=== PATIENT | female | born 1955 | race African-American/Black ===

== ENCOUNTER 2018-12-07 14:17 | Inpatient (IN) | payer OTHER ==
[~2018-12-07] VITALS: Ht 162.6 cm; Wt 103.5 kg
[~2018-12-07 14:17] MED LIST: ALPR1TAB2 PO; ASPI325T32 PO; ATOR20TA38 PO; DOCU-159 PO; GABA300C PO; LOSA50TA2 PO; MECL25TA2 PO; PANT40TA3 PO; SERT100T PO; SPIR50TA PO; [UNRECOGNIZED DRUG - CODE] TD
--- NOTE | 2018-12-07 15:10 | ERD ---
ER Documentation Chief Complaint Chief Complaint GRAYSON HPI The patient is 63-year-old female, presenting to the ER because of headache. She had a syncopal episode while she was waiting in the emergency department waiting room.She was recently diagnosed with temporal arteritis about 5 weeks ago, and follow-up with neurologist. She was seen by film cleaner yesterday, who told her that she had a stroke in her right eye. She denies facial pain, neck pain, chest pain, dyspnea, abdominal pain, vomiting. She denies smoking or drinking. She has not been able to see well from her right eye for the last 5-6 clicks Medical history: Dyslipidemia, anxiety, hypertension, diabetic neuropathy, history of TIA, diabetes mellitus Past surgical history: Brain aneurysm, ROS All systems reviewed and are negative except as per history of present illness. Medications Home Meds Reported Medications Donepezil* (Donepezil*) 10 Mg Tablet, 10 MG PO DAILY, #30 TAB 12/07/18 Zolpidem Tartrate* (Zolpidem Tartrate*) 5 Mg Tablet, 5 MG PO QHS PRN for INSOMNIA, #30 TAB 12/07/18 Tramadol Hcl* (Ultram*) 50 Mg Tablet, 50 MG PO Q6H PRN for PAIN, TAB 12/07/18 Nicotine* (Nicotine* Patch) 21 mg/day Patch, 1 EACH TD DAILY, PATCH 12/07/18 Atorvastatin* (Atorvastatin*) 80 Mg Tablet, 80 MG PO QHS, #30 TAB 12/07/18 Clopidogrel Bisulfate* (Clopidogrel Bisulfate*) 75 Mg Tablet, 75 MG PO DAILY, #30 TAB 12/07/18 Divalproex Sodium* (Divalproex Sodium*) 500 Mg Tablet.dr, 500 MG PO BID, #120 TAB 12/07/18 Trazodone Hcl* (Trazodone Hcl*) 100 Mg Tablet, 100 MG PO QHS, #30 TAB 12/07/18 Ergocalciferol (Vitamin D2) (VITAMIN D2) 50,000 Unit Capsule, 37660 UNIT PO Q7D, CAP 12/07/18 Gabapentin* (Gabapentin*) 300 Mg Capsule, 300 MG PO TID, #90 CAP 12/07/18 Albuterol Sulfate* (Ventolin HFA*) 18 Gm Hfa.aer.ad, 2 PUFF INHALATION Q4H, #1 INHALER 12/07/18 Ferrous Sulfate* (Ferrous Sulfate*) 325 Mg Tabec, 325 MG PO DAILY, TAB 12/07/18 Amlodipine Besylate* (Amlodipine Besylate*) 10 Mg Tablet, 10 MG PO DAILY, #30 TAB 12/07/18 Ipratropium-Albuterol (Ipratropium-Albuterol) 0.5-3 Mg/3 Ml Ampul.neb, 3 ML INHALATION BID, #30 VIAL 12/07/18 Alprazolam* (Alprazolam*) 1 Mg Tablet, 1 MG PO Q12H PRN for ANXIETY, TAB 12/07/18 Pantoprazole* (Pantoprazole*) 40 Mg Tablet.dr, 40 MG PO AC BREAKFAST, TAB 12/07/18 Docusate Sodium* (Docusate Sodium*) 100 Mg Capsule, 100 MG PO BID, #60 CAP 12/07/18 Hydroxyzine Hcl* (Hydroxyzine Hcl*) 50 Mg Tablet, 50 MG PO BID PRN for ITCHING, #30 TAB 12/07/18 Umeclidinium Brm-Vilanterol Tr (Anoro Ellipta) 62.5-25 Mcg Disk.w.dev, 1 EACH INHALATION DAILY, #1 DISK 12/07/18 Levothyroxine Sodium* (Levothyroxine Sodium*) 25 Mcg Tablet, 25 MCG PO BEFORE BREAKFAST, #30 TAB 12/07/18 Prochlorperazine* (Prochlorperazine*) 10 Mg Tablet, 10 MG PO Q8H PRN for NAUSEA, TAB 12/07/18 Sertraline Hcl* (Sertraline Hcl*) 50 Mg Tablet, 50 MG PO TID, #30 TAB 12/07/18 Losartan Potassium* (Losartan Potassium*) 50 Mg Tablet, 50 MG PO DAILY, TAB 12/07/18 Metformin Hcl* (Metformin Hcl*) 500 Mg Tablet, 500 MG PO WITH BREAKFAST, #30 TAB 12/07/18 Cyclobenzaprine Hcl* (Cyclobenzaprine Hcl*) 10 Mg Tablet, 10 MG PO DAILY, #60 TAB 12/07/18 Discontinued Reported Medications Donepezil* (Donepezil*) 10 Mg Tablet, 10 MG PO DAILY, #30 TAB 12/07/18 Docusate Sodium* (Docusate Sodium*) 100 Mg Capsule, 100 MG PO DAILY PRN for CONSTIPATION, CAP 07/18/14 Pantoprazole* (Protonix*) 40 Mg Tablet.dr, 40 MG PO DAILY, TAB 07/18/14 Atorvastatin Calcium* (Atorvastatin Calcium*) 20 Mg Tablet, 20 MG PO HS, TAB 07/18/14 Aspirin* (Aspirin* EC) 325 Mg Tablet.dr, 325 MG PO DAILY, TAB 07/18/14 Nicotine* (Nicoderm* Patch) 21 mg/day Patch, 1 PATCH TD DAILY, PATCH 07/18/14 Meclizine Hcl* (Antivert*) 25 Mg Tablet, 25 MG PO TID, TAB 07/18/14 Gabapentin* (Neurontin*) 300 Mg Capsule, 300 MG PO TID, CAP 07/18/14 Sertraline Hcl* (Zoloft*) 100 Mg Tablet, 100 MG PO DAILY, TAB 07/03/14 Alprazolam* (Xanax*) 1 Mg Tab, 1 MG PO BID PRN for ANXIETY, TAB 01/25/14 Spironolactone* (Aldactone*) 50 Mg Tablet, 50 MG PO DAILY 01/25/14 Losartan Potassium* (Cozaar*) 50 Mg Tablet, 50 MG PO BID, TAB 01/25/14 Allergies Allergies: Coded Allergies: ibuprofen (Verified Allergy, Unknown, 12/07/18) iodine (Verified Allergy, Unknown, 12/07/18) sumatriptan (Verified Allergy, Unknown, 12/07/18) tramadol (Unverified Allergy, Unknown, 12/07/18) PMhx/Soc History of Surgery: Yes (brain aneurysm clipping ) Anesthesia Reaction: No Hx Neurological Disorder: Yes (tia(2013), HEMORR STROKE) Hx Respiratory Disorders: No Hx Cardiac Disorders: Yes (HTN, CHOLESTEROL) Hx Psychiatric Problems: No Hx Miscellaneous Medical Probl: Yes (HTN, DM,diabetic neuropathy,anxiety,multiple TIAs, smoker,vision loss R eye) Hx Alcohol Use: No Hx Substance Use: No Hx Tobacco Use: No Physical Exam Vitals Vital Signs Date Temp Pulse Resp B/P (MAP) Pulse Ox O2 O2 Flow FiO2 Time Delivery Rate 12/07/18 98.6 76 20 137/82 94 Room Air 16:08 (100) 12/07/18 98.6 93 20 137/82 94 14:23 (100) Physical Exam Const: No acute distress. Head: Atraumatic. Eyes: Normal Conjunctiva. ENT: Normal External Ears, Nose and Mouth. Neck: Full range of motion. No meningismus. Resp: Clear to auscultation bilaterally. Cardio: Regular rate and rhythm. Abd: Soft, non distended, normal bowel sounds, non tender. Skin: No petechiae or rashes. Back: No midline or flank tenderness. Ext: No cyanosis, or edema. Neur: Awake and alert. No focal deficit Psych: Normal Mood and Affect. Result Diagram: 12/07/18 1607 12/07/18 1607 Results 24 hrs Laboratory Tests Test 12/07/18 16:05 12/07/18 16:07 Bedside Glucose 112 mg/dL White Blood Count 11.7 10^3/ul Red Blood Count 4.18 10^6/ul Hemoglobin 11.5 g/dl Hematocrit 36.1 % Mean Corpuscular Volume 86.4 fl Mean Corpuscular Hemoglobin 27.5 pg Mean Corpuscular Hemoglobin Concent 31.9 g/dl Red Cell Distribution Width 17.7 % Platelet Count 248 10^3/UL Mean Platelet Volume 11.1 fl Immature Granulocytes % 0.300 % Neutrophils % % Segmented Neutrophils % (Manual) 48 % Band Neutrophils % (Manual) 1 % Lymphocytes % % Lymphocytes % (Manual) 46 % Reactive Lymphocytes % (Manual) 1 % Monocytes % % Monocytes % (Manual) 3 % Eosinophils % % Eosinophils % (Manual) 1 % Basophils % % Nucleated Red Blood Cells % 0.0 /100WBC Immature Granulocytes # 0.040 10^3/ul Neutrophils # 10^3/ul Neutrophils # (Manual) 5.6 10^3/ul Band Neutrophils # 0.1 10^3/ul Lymphocytes (Manual) 5.3 10^3/ul Lymphocytes # 10^3/ul Reactive Lymphocytes # 0.1 10^3/ul Monocytes # 10^3/ul Monocytes # (Manual) 0.3 10^3/ul Eosinophils # 10^3/ul Basophils # 10^3/ul Nucleated Red Blood Cells # 10^3/ul Platelet Estimate NORMAL Giant Platelets 4 % Polychromasia 1+ Target Cells 1+ Sodium Level 143 mmol/L Potassium Level 3.9 mmol/L Chloride Level 114 mmol/L Carbon Dioxide Level 21 mmol/L Anion Gap 8 Blood Urea Nitrogen 11 mg/dl Creatinine 0.74 mg/dl Est Glomerular Filtrat Rate mL/min > 60 mL/min Glucose Level 84 mg/dl Calcium Level 7.4 mg/dl Troponin I < 0.012 ng/ml Current Medications Medications Dose Sig/[place] Start Time Status Last (Trade) Ordered Route PRN Stop Time Admin Dose Reason Admin 1 tab ONCE ONCE 12/07/18 Acetaminophen PO 21:00 12/07/18 / 21:01 Hydrocodone Bitart ([place] (5/325)) Ondansetron 4 mg ONCE STAT 12/07/18 DC HCl (Zofran ODT 20:37 12/07/18 Odt) 20:38 Procedures/[place] [id number] Radiology Main Line: [phone] DIAGNOSTIC IMAGING REPORT Patient: HOMERO MEDRANO : 1955 Age: 63 Sex: F MR #: [id number] DOS: 12/07/18 1535 Ordering MD: ANDREW MCCARTHY MD Location: E/R Room/Bed: PROCEDURE: CT Brain without contrast. CLINICAL INDICATION: Headache. Syncope. TECHNIQUE: A CT of the brain without contrast was performed utilizing axial sections from the skull base through the vertex. The patient was scanned without intravenous contrast enhancement. Sagittal and coronal reformatted images were obtained using the data from the axial images. Total exam DLP is 634.23 mGy-cm. CTDIvol is 38.46 mGy. One or more of the following dose reduction techniques were used: Automated exposure control, adjustment of the mA and/or kV according to patient size, use of iterative reconstruction technique. DICOM images are available. COMPARISON: CT scan of the brain dated 11/05/2018. FINDINGS: There is a right inferior frontal temporal craniotomy and aneurysm clip in the [place]. 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 There is no evidence of recent infarct. The owen and white matter differentiation is otherwise normal. The ventricles and cisterns are normal. There is no intracranial hemorrhage or space-occupying lesion. There is no skull fracture or lytic lesion. IMPRESSION: 1. No intracranial hemorrhage. 2. Right inferior frontal temporal craniotomy and aneurysm clip in the [place]. 3. 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 4. Otherwise unremarkable noncontrast CT scan of the brain. 5. No change from the 11/05/2018 CT scan of the brain. RPTAT: QQ .Pedro Willis MD, MD Date Time Electronically viewed and signed by .Pedro Willis MD, MD on 12/07/2018 16:45 .R/ CC: ANDREW MCCARTHY MD [id number] EKG: Read by emergency physician Rate/Rhythm: Normal Sinus Rhythm 70 beats/min QRS, ST, T-waves: No ST elevation, nonspecific t abn Impression: abnormal EKG MEDICAL MAKING DECISION: The patient is a 63-year-old female, presented with acute syncope, right eye blindness, recently diagnosed temporal arteritis. She was treated with [place] 5 mg p.o. for headache and Zofran ODT for nausea The differential diagnoses considered include but are not limited to arrhythmogenic right ventricular dysplasia, Brugada syndrome, left ventricular hypertrophy, pulmonary embolism, QT abnormality, [id number]. Departure Diagnosis: Primary Impression: Syncope Additional Impression: Anemia Condition: Stable Comments I discussed the findings with the patient. I discussed the patient with Dr Villalobos at 6:35 p , who was made aware of the lab, the treatment, the patient condition. The patient is admitted to [facility] Disclaimer: Inadvertent spelling and grammatical errors are likely due to EHR/dictation software use and do not reflect on the overall quality of patient care. Also, please note that the electronic time recorded on this note does not necessarily reflect the actual time of the patient encounter. ANDREW MCCARTHY MD Dec 07, 2018 15:09
[2018-12-07] MEDS ORDERED: METF500T24 PO (16:35)
[2018-12-07] MEDS ORDERED: CYCL10TA7 PO (16:35)
[2018-12-07] MEDS ORDERED: SERT50TA6 PO (16:36)
[2018-12-07] MEDS ORDERED: LOSA50TA14 PO (16:36)
[2018-12-07] MEDS ORDERED: UMEC1DIS INHALATION (16:37)
[2018-12-07] MEDS ORDERED: LEVO25TA6 PO (16:37)
[2018-12-07] MEDS ORDERED: PROC10TA10 PO (16:37)
[2018-12-07] MEDS ORDERED: DOCU-159 PO (16:38)
[2018-12-07] MEDS ORDERED: HYDR50TA15 PO (16:38)
[2018-12-07] MEDS ORDERED: DONE10TA7 PO ×2 (16:38→16:48)
[2018-12-07] MEDS ORDERED: PANT40TA4 PO (16:39)
[2018-12-07] MEDS ORDERED: ALPR1TAB7 PO (16:39)
[2018-12-07] MEDS ORDERED: FER325 PO (16:40)
[2018-12-07] MEDS ORDERED: AMLO-147 PO (16:40)
[2018-12-07] MEDS ORDERED: IPRA3AMP29 INHALATION (16:40)
[2018-12-07] MEDS ORDERED: ALBU18HF INHALATION (16:41)
[2018-12-07] MEDS ORDERED: GABA300C16 PO (16:41)
[2018-12-07] MEDS ORDERED: ERGO500013 PO (16:42)
[2018-12-07] MEDS ORDERED: TRA100 PO (16:42)
[2018-12-07] MEDS ORDERED: CLOP75TA19 PO (16:43)
[2018-12-07] MEDS ORDERED: DIVA-16 PO (16:43)
[2018-12-07] MEDS ORDERED: ATOR-2 PO (16:44)
[2018-12-07] MEDS ORDERED: NICO-546 TD (16:44)
[2018-12-07] MEDS ORDERED: TRAM50TA PO (16:45)
[2018-12-07] MEDS ORDERED: ZOLP5TAB7 PO (16:46)
[2018-12-07] MEDS ORDERED: ONDANSETRON (ODT) 4 MG TAB ODT STA (20:37)
[2018-12-07] MEDS ORDERED: HYDROCODONE/APAP (5/325) TAB PO ONE (21:00)
[2018-12-07 21:10] VITALS: PULSE 78
[2018-12-07 21:33] VITALS: BP 117/62; PULSE 77; RESP 18
[2018-12-07] MEDS ORDERED: PROCHLORPERAZINE 10 MG TAB PO PRN (22:00)
[2018-12-07] MEDS ORDERED: ZOLPIDEM 5 MG TAB PO PRN (22:00)
[2018-12-07] MEDS ORDERED: hydrOXYzine HCL 50 MG TAB PO PRN (22:00)
[2018-12-07 22:15] VITALS: Ht 162.6 cm; Wt 103.5 kg
[2018-12-07] MEDS: METHYLPREDNISOLONE 125 MG INJ IV SCH (22:39)
[2018-12-07] MEDS: morphine 2 MG INJ IV PRN (22:39)
[2018-12-07] MEDS: GABAPENTIN 300 MG CAP PO SCH (22:41)
[2018-12-07] MEDS: DIVALPROEX (EC) 500 MG TAB PO SCH (22:41)
[2018-12-07] MEDS: ATORVASTATIN 80 MG TAB PO SCH (22:41)
[2018-12-07] MEDS: ALBUTEROL HFA 8 GM INHALER INH SCH (23:30)
[2018-12-08] VITALS (10 sets, daily range): BP systolic 117–137; BP diastolic 70–76; PULSE 62–95; RESP 16–18
[2018-12-08] MEDS: traZODone 100 MG TAB PO SCH ×2 (00:18→20:38)
[2018-12-08] MEDS: ALBUTEROL HFA 8 GM INHALER INH SCH ×6 (02:03→21:00)
[2018-12-08] MEDS: ALPRAZOLAM 1 MG TAB PO PRN ×2 (02:18→20:38)
[2018-12-08] MEDS: morphine 2 MG INJ IV PRN ×3 (04:43→23:30)
[2018-12-08] MEDS: PANTOPRAZOLE (EC) 40 MG TAB PO SCH ×2 (06:43→07:56)
[2018-12-08] MEDS: METHYLPREDNISOLONE 125 MG INJ IV SCH (06:44)
[2018-12-08] MEDS: ACCU-CHEK XX SCH ×4 (07:00→20:49)
[2018-12-08] MEDS ORDERED: PANTOPRAZOLE (EC) 40 MG TAB PO SCH (07:00)
[2018-12-08] MEDS ORDERED: LEVOTHYROXINE 25 MCG TAB PO SCH (07:00)
[2018-12-08] MEDS: metFORMIN 500 MG TAB PO SCH (07:56)
[2018-12-08] MEDS: SERTRALINE 50 MG TAB PO SCH (08:22)
[2018-12-08] MEDS: DIVALPROEX (EC) 500 MG TAB PO SCH ×2 (08:23→20:38)
[2018-12-08] MEDS: GABAPENTIN 300 MG CAP PO SCH ×3 (08:24→20:37)
[2018-12-08] MEDS: AMLODIPINE 10 MG TAB PO SCH (08:24)
[2018-12-08] MEDS: DONEPEZIL 10 MG TAB PO SCH (08:24)
[2018-12-08] MEDS: LOSARTAN 50 MG TAB PO SCH (08:25)
[2018-12-08] MEDS: CLOPIDOGREL 75 MG TAB PO SCH (08:25)
[2018-12-08] MEDS: CYCLOBENZAPRINE 10 MG TAB PO SCH (08:25)
[2018-12-08] MEDS: DOCUSATE SODIUM 100 MG CAP PO SCH ×2 (08:26→20:37)
[2018-12-08] MEDS: NICOTINE (21 MG/24 HR) PATCH TRANSDERM SCH (08:27)
[2018-12-08] MEDS ORDERED: PRED50TA PO (09:40)
--- NOTE | 2018-12-08 09:42 | PDOCDIS ---
Discharge Instructions CONDITION [id number] Patient Condition: [id number] Good HOME CARE INSTRUCTIONS: [id number] Diet Instructions: [id number] Activity Restrictions: [id number] Do not Drive FOLLOW UP/APPOINTMENTS Follow-up Plan neurology THADDEUS pcp 1 week Rhuematology FERNANDA CAMPBELL MD Dec 08, 2018 09:42
[2018-12-08] MEDS: HYDROCODONE/APAP (5/325) TAB PO PRN (10:44)
--- NOTE | 2018-12-08 11:45 | CONS ---
Assessment/Plan Assessment/Plan Assessment/Plan (Daily) History of headaches for about 5 weeks now Rule out temporal arteritis We will proceed with temporal artery biopsy Discussed with the patient Consultation Date/Type/Reason Admit Date/Time Dec 07, 2018 at 18:48 Date of Consultation: Dec 08, 2018 Type of Consult Vascular surgery Reason for Consultation Rule out temporal arteritis Date/Time of Note DATE: 12/08/18 TIME: 11:43 Hx of Present Illness This is a 63-year-old female with a history of previous brain surgery now complaining of severe headache suspicious of temporal arteritis Past Medical History Home Meds Active Scripts Prednisone* (Prednisone*) 50 Mg Tablet, 50 MG PO DAILY for 10 Days, TAB Prov:FERNANDA GEURIN MD 12/08/18 Reported Medications Donepezil* (Donepezil*) 10 Mg Tablet, 10 MG PO DAILY, #30 TAB 12/07/18 Zolpidem Tartrate* (Zolpidem Tartrate*) 5 Mg Tablet, 5 MG PO QHS PRN for INSOMNIA, #30 TAB 12/07/18 Tramadol Hcl* (Ultram*) 50 Mg Tablet, 50 MG PO Q6H PRN for PAIN, TAB 12/07/18 Nicotine* (Nicotine* Patch) 21 mg/day Patch, 1 EACH TD DAILY, PATCH 12/07/18 Atorvastatin* (Atorvastatin*) 80 Mg Tablet, 80 MG PO QHS, #30 TAB 12/07/18 Clopidogrel Bisulfate* (Clopidogrel Bisulfate*) 75 Mg Tablet, 75 MG PO DAILY, #30 TAB 12/07/18 Divalproex Sodium* (Divalproex Sodium*) 500 Mg Tablet.dr, 500 MG PO BID, #120 TAB 12/07/18 Trazodone Hcl* (Trazodone Hcl*) 100 Mg Tablet, 100 MG PO QHS, #30 TAB 12/07/18 Ergocalciferol (Vitamin D2) (VITAMIN D2) 50,000 Unit Capsule, 27062 UNIT PO Q7D, CAP 12/07/18 Gabapentin* (Gabapentin*) 300 Mg Capsule, 300 MG PO TID, #90 CAP 12/07/18 Albuterol Sulfate* (Ventolin HFA*) 18 Gm Hfa.aer.ad, 2 PUFF INHALATION Q4H, #1 INHALER 12/07/18 Ferrous Sulfate* (Ferrous Sulfate*) 325 Mg Tabec, 325 MG PO DAILY, TAB 12/07/18 Amlodipine Besylate* (Amlodipine Besylate*) 10 Mg Tablet, 10 MG PO DAILY, #30 TAB 12/07/18 Ipratropium-Albuterol (Ipratropium-Albuterol) 0.5-3 Mg/3 Ml Ampul.neb, 3 ML INHALATION BID, #30 VIAL 12/07/18 Alprazolam* (Alprazolam*) 1 Mg Tablet, 1 MG PO Q12H PRN for ANXIETY, TAB 12/07/18 Pantoprazole* (Pantoprazole*) 40 Mg Tablet.dr, 40 MG PO AC BREAKFAST, TAB 12/07/18 Docusate Sodium* (Docusate Sodium*) 100 Mg Capsule, 100 MG PO BID, #60 CAP 12/07/18 Hydroxyzine Hcl* (Hydroxyzine Hcl*) 50 Mg Tablet, 50 MG PO BID PRN for ITCHING, #30 TAB 12/07/18 Umeclidinium Brm-Vilanterol Tr (Anoro Ellipta) 62.5-25 Mcg Disk.w.dev, 1 EACH INHALATION DAILY, #1 DISK 12/07/18 Prochlorperazine* (Prochlorperazine*) 10 Mg Tablet, 10 MG PO Q8H PRN for NAUSEA, TAB 12/07/18 Sertraline Hcl* (Sertraline Hcl*) 50 Mg Tablet, 50 MG PO TID, #30 TAB 12/07/18 Losartan Potassium* (Losartan Potassium*) 50 Mg Tablet, 50 MG PO DAILY, TAB 12/07/18 Metformin Hcl* (Metformin Hcl*) 500 Mg Tablet, 500 MG PO WITH BREAKFAST, #30 TAB 12/07/18 Cyclobenzaprine Hcl* (Cyclobenzaprine Hcl*) 10 Mg Tablet, 10 MG PO DAILY, #60 TAB 12/07/18 Discontinued Reported Medications Donepezil* (Donepezil*) 10 Mg Tablet, 10 MG PO DAILY, #30 TAB 12/07/18 Levothyroxine Sodium* (Levothyroxine Sodium*) 25 Mcg Tablet, 25 MCG PO BEFORE BREAKFAST, #30 TAB 12/07/18 Docusate Sodium* (Docusate Sodium*) 100 Mg Capsule, 100 MG PO DAILY PRN for CONSTIPATION, CAP 07/18/14 Pantoprazole* (Protonix*) 40 Mg Tablet.dr, 40 MG PO DAILY, TAB 07/18/14 Atorvastatin Calcium* (Atorvastatin Calcium*) 20 Mg Tablet, 20 MG PO HS, TAB 07/18/14 Aspirin* (Aspirin* EC) 325 Mg Tablet.dr, 325 MG PO DAILY, TAB 07/18/14 Nicotine* (Nicoderm* Patch) 21 mg/day Patch, 1 PATCH TD DAILY, PATCH 07/18/14 Meclizine Hcl* (Antivert*) 25 Mg Tablet, 25 MG PO TID, TAB 07/18/14 Gabapentin* (Neurontin*) 300 Mg Capsule, 300 MG PO TID, CAP 07/18/14 Sertraline Hcl* (Zoloft*) 100 Mg Tablet, 100 MG PO DAILY, TAB 07/03/14 Alprazolam* (Xanax*) 1 Mg Tab, 1 MG PO BID PRN for ANXIETY, TAB 01/25/14 Spironolactone* (Aldactone*) 50 Mg Tablet, 50 MG PO DAILY 01/25/14 Losartan Potassium* (Cozaar*) 50 Mg Tablet, 50 MG PO BID, TAB 01/25/14 Medications Current Medications Albuterol (Ventolin Hfa) 2 puff Q4 INH Last administered on 12/08/18 08:20; Admin Dose 2 PUFF; Start 12/07/18 at 23:30 Alprazolam (Xanax) 1 mg Q12H PRN PO ANXIETY Last administered on 12/08/18at 02:18; Admin Dose 1 MG; Start 12/07/18 at 22:00 Amlodipine Besylate (Norvasc) 10 mg DAILY PO Last administered on 12/08/18at 08:24; Admin Dose 10 MG; Start 12/08/18 at 09:00 Atorvastatin Calcium (Lipitor) 80 mg QHS PO Last administered on 12/07/18at 22:41; Admin Dose 80 MG; Start 12/07/18 at 22:30 Clopidogrel Bisulfate (plaVIX) 75 mg DAILY PO Last administered on 12/08/18 08:25; Admin Dose 75 MG; Start 12/08/18 at 09:00 Cyclobenzaprine HCl (Flexeril) 10 mg DAILY PO Last administered on 12/08/18 08:25; Admin Dose 10 MG; Start 12/08/18 at 09:00 Divalproex Sodium (Depakote) 500 mg BID PO Last administered on 12/08/18 08:23; Admin Dose 500 MG; Start 12/07/18 at 22:30 Docusate Sodium (Colace) 100 mg BID PO Last administered on 12/08/18 08:26; Admin Dose 100 MG; Start 12/08/18 at 09:00 Donepezil HCl (Aricept) 10 mg DAILY PO Last administered on 12/08/18 08:24; Admin Dose 10 MG; Start 12/08/18 at 09:00 Gabapentin (Neurontin) 300 mg TID PO Last administered on 12/08/18 08:24; Admin Dose 300 MG; Start 12/07/18 at 22:30 Hydroxyzine HCl (Atarax) 50 mg BID PRN PO ITCHING; Start 12/07/18 at 22:00 Losartan Potassium (Cozaar) 50 mg DAILY PO Last administered on 12/08/18 08:25; Admin Dose 50 MG; Start 12/08/18 at 09:00 Metformin HCl (Glucophage) 500 mg WITH BREAKFAST PO Last administered on 12/08/18 07:56; Admin Dose 500 MG; Start 12/08/18 at 08:00 Nicotine (Nicoderm 21 Mg/ 24hr) 1 patch DAILY TRANSDERM ; Start 12/08/18 at 0 9:00 Prochlorperazine (Compazine) 10 mg Q8H PRN PO NAUSEA; Start 12/07/18 at 22:00 Sertraline HCl (Zoloft) 150 mg DAILY PO Last administered on 12/08/18 08:22; Admin Dose 150 MG; Start 12/08/18 at 09:00 Zolpidem Tartrate (Ambien) 5 mg QHS PRN PO INSOMNIA; Start 12/07/18 at 22:00 Diagnostic Test (Pha) (Accu-Chek) 1 ea AC MEALS AND BEDTIME XX ; Start 12/08/18 at 07:00 Morphine Sulfate (morphine) 2 mg Q3 PRN IV SEVERE PAIN LEVEL 7-10 Last administered on 12/08/18 04:43; Admin Dose 2 MG; Start 12/07/18 at 22:30 Acetaminophen/ Hydrocodone Bitart ([place] (5/325)) 1 tab Q6H PRN PO MODERATE PAIN LEVEL 4-6 Last administered on 12/08/18at 10:44; Admin Dose 1 TAB; Start 12/07/18 at 22:30 Trazodone HCl (Desyrel) 100 mg QHS PO Last administered on 12/08/18at 00:18; Admin Dose 100 MG; Start 12/08/18 at 00:00 Pantoprazole (Protonix Tab) 40 mg AC BREAKFAST PO Last administered on 12/08/18at 07:56; Admin Dose 40 MG; Start 12/08/18 at 06:00 Methylprednisolone Sodium Succinate 1000 mg/Dextrose 100 ml @ 100 mls/hr DAILY IVPB ; Start 12/08/18 at 13:00; Stop 12/10/18 at 12:59 Allergies: Coded Allergies: ibuprofen (Verified Allergy, Unknown, 12/07/18) iodine (Verified Allergy, Unknown, 12/07/18) sumatriptan (Verified Allergy, Unknown, 12/07/18) tramadol (Unverified Allergy, Unknown, 12/07/18) Social History Smoking Status: Current some day smoker Exam/Review of Systems Exam Vitals Vital Signs Date Temp Pulse Resp B/P (MAP) Pulse Ox O2 O2 Flow FiO2 Time Delivery Rate 12/08/18 62 08:29 12/08/18 Nasal 2.0 07:58 Cannula 12/08/18 98.0 18 117/72 94 07:17 (87) Intake and Output 12/07/18 12/07/18 12/08/18 1515:00 23:00 07:00 IntakeIntake Total 950 ml BalanceBalance 950 ml Eyes: nl conjunctiva, EOMI, nl lids, nl sclera, PERRL ENMT: nl external ears & nose, nl lips & teeth, nl nasal mucosa & septum Neck: supple, non-tender Respiratory: clear to auscultation, normal air movement Cardiovascular: regular rate and rhythm, nl pulses Gastrointestinal: soft, nl liver, spleen, non-tender Musculoskeletal: nl extremities to inspection, nl gait and stance Extremities: normal pulses Results Result Diagram: 12/08/18 0534 12/08/18 0534 Results 24hrs Laboratory Tests Test 12/07/18 16:05 12/07/18 16:07 12/08/18 05:34 12/08/18 07:47 Bedside Glucose 112 174 White Blood Count 11.7 #H 8.4 # Red Blood Count 4.18 L 4.44 Hemoglobin 11.5 L 12.0 Hematocrit 36.1 L 39.4 Mean Corpuscular 86.4 88.7 Volume Mean Corpuscular 27.5 L 27.0 L Hemoglobin Mean Corpuscular 31.9 L 30.5 L Hemoglobin Concent Red Cell Distribution 17.7 H 18.2 H Width Platelet Count 248 264 Mean Platelet Volume 11.1 #H 11.3 H Immature Granulocytes 0.300 1.200 H % Neutrophils % 82.6 H Segmented Neutrophils 48 % (Manual) Band Neutrophils % 1 (Manual) Lymphocytes % 14.5 L Lymphocytes % (Manual) 46 Reactive Lymphocytes 1 H % (Manual) Monocytes % 1.2 Monocytes % (Manual) 3 Eosinophils % 0.1 Eosinophils % (Manual) 1 Basophils % 0.4 Nucleated Red Blood 0.0 0.0 Cells % Immature Granulocytes 0.040 H 0.100 H # Neutrophils # 7.0 Neutrophils # (Manual) 5.6 Band Neutrophils # 0.1 Lymphocytes (Manual) 5.3 H Lymphocytes # 1.2 Reactive Lymphocytes # 0.1 H Monocytes # 0.1 L Monocytes # (Manual) 0.3 Eosinophils # 0.0 Basophils # 0.0 Nucleated Red Blood 0.0 Cells # Platelet Estimate NORMAL Giant Platelets 4 H Polychromasia 1+ Target Cells 1+ Sodium Level 143 143 Potassium Level 3.9 4.7 Chloride Level 114 H 108 Carbon Dioxide Level 21 29 Anion Gap 8 6 Blood Urea Nitrogen 11 13 Creatinine 0.74 1.02 H Est Glomerular Filtrat > 60 > 60 Rate mL/min Glucose Level 84 168 Calcium Level 7.4 L 9.5 Troponin I < 0.012 Medications Medication Current Medications Albuterol (Ventolin Hfa) 2 puff Q4 INH Last administered on 12/08/18 08:20; Admin Dose 2 PUFF; Start 12/07/18 at 23:30 Alprazolam (Xanax) 1 mg Q12H PRN PO ANXIETY Last administered on 12/08/18 02:18; Admin Dose 1 MG; Start 12/07/18 at 22:00 Amlodipine Besylate (Norvasc) 10 mg DAILY PO Last administered on 12/08/18 08:24; Admin Dose 10 MG; Start 12/08/18 at 09:00 Atorvastatin Calcium (Lipitor) 80 mg QHS PO Last administered on 12/07/18 22:41; Admin Dose 80 MG; Start 12/07/18 at 22:30 Clopidogrel Bisulfate (plaVIX) 75 mg DAILY PO Last administered on 12/08/18 08:25; Admin Dose 75 MG; Start 12/08/18 at 09:00 Cyclobenzaprine HCl (Flexeril) 10 mg DAILY PO Last administered on 12/08/18 08:25; Admin Dose 10 MG; Start 12/08/18 at 09:00 Divalproex Sodium (Depakote) 500 mg BID PO Last administered on 12/08/18 08:23; Admin Dose 500 MG; Start 12/07/18 at 22:30 Docusate Sodium (Colace) 100 mg BID PO Last administered on 12/08/18 08:26; Admin Dose 100 MG; Start 12/08/18 at 09:00 Donepezil HCl (Aricept) 10 mg DAILY PO Last administered on 12/08/18 08:24; Admin Dose 10 MG; Start 12/08/18 at 09:00 Gabapentin (Neurontin) 300 mg TID PO Last administered on 12/08/18 08:24; Admin Dose 300 MG; Start 12/07/18 at 22:30 Hydroxyzine HCl (Atarax) 50 mg BID PRN PO ITCHING; Start 12/07/18 at 22:00 Losartan Potassium (Cozaar) 50 mg DAILY PO Last administered on 12/08/18 08:25; Admin Dose 50 MG; Start 12/08/18 at 09:00 Metformin HCl (Glucophage) 500 mg WITH BREAKFAST PO Last administered on 12/08/18 07:56; Admin Dose 500 MG; Start 12/08/18 at 08:00 Nicotine (Nicoderm 21 Mg/ 24hr) 1 patch DAILY TRANSDERM ; Start 12/08/18 at 09:00 Prochlorperazine (Compazine) 10 mg Q8H PRN PO NAUSEA; Start 12/07/18 at 22:00 Sertraline HCl (Zoloft) 150 mg DAILY PO Last administered on 12/08/18 08:22; Admin Dose 150 MG; Start 12/08/18 at 09:00 Zolpidem Tartrate (Ambien) 5 mg QHS PRN PO INSOMNIA; Start 12/07/18 at 22:00 Diagnostic Test (Pha) (Accu-Chek) 1 ea AC MEALS AND BEDTIME XX ; Start 12/08/18 at 07:00 Morphine Sulfate (morphine) 2 mg Q3 PRN IV SEVERE PAIN LEVEL 7-10 Last administered on 12/08/18at 04:43; Admin Dose 2 MG; Start 12/07/18 at 22:30 Acetaminophen/ Hydrocodone Bitart ([place] (5/325)) 1 tab Q6H PRN PO MODERATE PAIN LEVEL 4-6 Last administered on 12/08/18at 10:44; Admin Dose 1 TAB; Start 12/07/18 at 22:30 Trazodone HCl (Desyrel) 100 mg QHS PO Last administered on 12/08/18at 00:18; Admin Dose 100 MG; Start 12/08/18 at 00:00 Pantoprazole (Protonix Tab) 40 mg AC BREAKFAST PO Last administered on 12/08/18at 07:56; Admin Dose 40 MG; Start 12/08/18 at 06:00 Methylprednisolone Sodium Succinate 1000 mg/Dextrose 100 ml @ 100 mls/hr DAILY IVPB ; Start 12/08/18 at 13:00; Stop 12/10/18 at 12:59 ROBERT REYES MD Dec 08, 2018 11:45
--- NOTE | 2018-12-08 12:30 | RADRPT ---
Echocardiogram Report Patient Name: HOMERO MEDRANOPatient ID: [id number] : 1955 (63y 8m)Study Date: 12/08/2018 7:33:12 AM Gender: FAccession #: [id number] Tech: Patito Laird [facility] Location: [facility] Ref.Physician: FERNANDA GUERIN Height(Cm): BSA: Weight(Kg): Quality: AdequateAccount #: Procedures: Echocardiographic Report: Transthoracic echocardiogram with complete 2D, M-Mode, and doppler examination. Indications: Syncope. Measurements: 2D/M Mode Doppler Measurement Value Normal Range Measurement Value Normal Range LVIDd 2D 4.4 [ 3.8 - 5.2 ] cm AV Peak Kin 1.6 [ 100.0 - 170.0 ] cm/sec LVIDs 2D 2.3 [ 2.2 - 3.5 ] cm AV Peak PG 10.0 [ 2.0 - 9.0 ] mmHg LVPWd 2D 1.1 [ 0.6 - 0.9 ] cm LVOT Peak Kin 1.1 [ 70.0 - 110.0 ] cm/sec IVSd 2D 1.2 [ 0.6 - 0.9 ] cm LVOT Peak PG 5.0 [ 2.0 - 6.0 ] mmHg AoR Diam 2D 2.5 [ 2.3 - 3.1 ] cm MV E Peak Kin 0.9 [ 60.0 - 130.0 ] cm/sec EDV 2D 90.1 [ 46.0 - 106.0 ] ml MV A Peak Kin 0.8 [ 100.0 - 120.0 ] cm/sec ESV 2D 17.7 [ 14.0 - 42.0 ] ml MV E/A 1.1 [ 0.8 - 1.5 ] ratio EF 2D 80.4 [ 54.0 - 74.0 ] percent MV Decel Time 176 [ 104 - 258 ] msec LA Dimen 2D 3.2 [ 2.7 - 3.8 ] cm Lat E` Kin 0.1 [ 10.0 - 15.0 ] cm/sec Lateral E/E` 11.1 [ 1.0 - 2.0 ] ratio MV E/A 1.1 [ 0.8 - 1.5 ] ratio TR Peak Kin 2.4 [ 100.0 - 280.0 ] cm/sec TR Peak PG 24.0 mmHg RVSP 27.0 [ 10.0 - 36.0 ] mmHg RA Pressure 3.0 mmHg Findings: Left Ventricle: Normal left ventricular systolic function. Normal left ventricular cavity size. Mild concentric left ventricular hypertrophy. Ejection fraction is visually estimated at 65 %. Right Ventricle: Normal right ventricular size. Normal right ventricular systolic function. Left Atrium: The left atrium is normal in size. Right Atrium: The right atrium is normal in size. Mitral Valve: Mitral valve leaflets appear mildly thickened. Mild mitral annular calcification. Trace mitral regurgitation. Aortic Valve: Normal appearance of the aortic valve. No significant aortic stenosis or insufficiency. Tricuspid Valve: Normal appearance of the tricuspid valve. Estimated peak PA systolic pressure 27 mmHg. There is trace tricuspid regurgitation. Pulmonic Valve: Normal pulmonic valve appearance. Pericardium: Normal pericardium with no significant pericardial effusion. Aorta: Normal aortic root. IVC: Normal size and normal respiratory collapse consistent with normal right atrial pressure. Conclusions: Normal left ventricular systolic function. Normal left ventricular cavity size. Mild concentric left ventricular hypertrophy. Ejection fraction is visually estimated at 65 %. Normal right ventricular size. Normal right ventricular systolic function. The left atrium is normal in size. The right atrium is normal in size. No significant valvular stenosis or regurgitation seen. Normal pericardium with no significant pericardial effusion. Electronically Signed By: Yariel Fitzpatrick 2018-12-08 12:29:16 PDT
[2018-12-08] MEDS: METHYLPRED. NA SUCC 1,000 MG in DEXTROSE 5% 100 ML IVPB SCH (12:52)
--- NOTE | 2018-12-08 13:29 | HP ---
DATE OF ADMISSION: 12/07/2018 CHIEF COMPLAINT: Headache. HISTORY OF PRESENT ILLNESS: A 63-year-old female who presented to the emergency [facility] with complaint of right-sided headache. Patient had a syncopal episode in the emergency room. She denies any focal weakness or numbness. No chest pain or shortness of breath. No palpitations. The patient was apparently diagnosed with temporal arteritis about 5 weeks prior to admission. She has not had a biopsy yet. She began to lose eyesight in the right eye about 3 weeks prior to admission. The patient's saw an hospice bereavement coordinator the day prior to admission and she was told that she had a "str haydee in the right eye". The patient detects light with the right eye, but the eyesight has been very poor. There is no history of glaucoma. PAST MEDICAL HISTORY: 1. Hypertension. 2. Type 2 diabetes mellitus. 3. Vascular dementia. 4. Hyperlipidemia. 5. Anxiety disorder. 6. Diabetic neuropathy. MEDICATIONS PRIOR TO ADMISSION: 1. Aricept, Ambien, tramadol, nicotine patch, atorvastatin, Plavix sodium, trazadone, vitamin D , gabapentin, albuterol, ferrous sulfate, Norvasc, alprazolam, Protonix, hydroxyzine, levothyroxine, sertraline, losartan, metformin, cyclobenzaprine. PAST SURGICAL HISTORY: Status post craniotomy in 2013 for intracranial aneurysm. SOCIAL HISTORY: The patient has a long history of tobacco use. Denies alcohol. PHYSICAL EXAMINATION: GENERAL: Well-developed, well-nourished female who is in no apparent distress. VITAL SIGNS: Stable. She is afebrile. HEENT: The patient has a very poor eyesight in the right eye, but able to detect light. Oropharynx is clear. NECK: Supple. LUNGS: Clear to auscultation bilaterally. CARDIAC: Regular rate and rhythm. No murmurs, rubs or gallops. ABDOMEN: Soft, nontender, nondistended, normoactive bowel sounds. EXTREMITIES: No clubbing, cyanosis, or edema. NEUROLOGICAL: Nonfocal. LABORATORY DATA: Unremarkable. ASSESSMENT: A 63-year-old female with this syncopal episode of unclear etiology. 1. Presumed temporal arteritis. 2. Right eye blindness. 3. Hypertension. 4. Type 2 diabetes mellitus. 5. Diabetic neuropathy. 6. Vascular dementia. 7. Hypothyroidism. PLAN: 1. Place in tele observation. 2. 2D echo. 3. IV Solu-Medrol. 4. Resume home medications. 5. Case was discussed with Dr. Chiang , client account manager. Dictated By: FERNANDA RUIZ/BAUTISTA Conf#: [id number] DID#: [id number]
[2018-12-08] MEDS ORDERED: hydrOXYzine HCL 25 MG TAB PO PRN (17:30)
[2018-12-08] MEDS: ATORVASTATIN 80 MG TAB PO SCH (20:38)
[2018-12-08] MEDS ORDERED: traZODone 100 MG TAB PO SCH (21:00)
[2018-12-09] VITALS (21 sets, daily range): BP systolic 98–156; BP diastolic 71–90; PULSE 64–96; RESP 14–24
[2018-12-09] MEDS: ALBUTEROL HFA 8 GM INHALER INH SCH ×6 (00:40→23:25)
--- NOTE | 2018-12-09 02:39 | CONS ---
DATE OF ADMISSION: 12/08/2018 DATE OF CONSULTATION: HISTORY OF PRESENT ILLNESS: The patient is 63 years old, who has multiple medical problems in the form of vascular dementia, diabetes type 2, hyperlipidemia, anxiety disorder, diabetic neuropathy, hypertension, possible temporal arteritis. No biopsy was done. The patient was admitted initially to [facility] where she was treated with cortisone and discharged without biopsy with possible temporal arteritis, in which the patient came to my clinic. I continued her on the steroid and I advised her to see the bulb tester, in which the patient has an appointment. PAST MEDICAL HISTORY: Includes diabetes type 2, diabetic neuropathy, anxiety disorder, vascular dementia, hypertension, right visual field defect, possible underlying temporal arteritis. CURRENT MEDICATIONS: Include: 1. Aricept. 2. Ambien. 3. Tramadol. 4. Nicotine patch. 5. Plavix. 6. Atorvastatin. 7. Trazodone. 8. Vitamin D. 9. Gabapentin. 10. Albuterol. 11. Ferrous sulfate. 12. Norvasc. 13. Xanax. 14. Protonix. 15. Hydroxyzine. 16. Levothyroxine. 17. Sertraline. 18. Losartan. 19. Metformin. 20. Cyclobenzaprine. 21. Solu-Medrol. PAST SURGICAL HISTORY: In the form of craniotomy in 2003 for intracranial aneurysm. SOCIAL HISTORY: The patient has a long history of tobacco use. Does not use alcohol. PHYSICAL EXAMINATION: GENERAL: Today, the patient is alert, awake, oriented, following simple commands without difficulty. CRANIAL NERVES: Cranial nerve II: Pupils are reactive to on the right side, diminished visual field hand movement, difficulty with counting on the right side. Left side is intact. Cranial nerves III, IV and : Extraocular muscles are intact for eye movement. Cranial nerve V: Equal sensation to face. Cranial nerve VII: Symmetrical face. Cranial nerve VIII: Equal hearing bilaterally. Cranial IX and X: Elevates palate. Cranial nerve XI: Elevates shoulder is 5/5. Cranial nerve XII: With straight tongue. MOTOR: Moving both upper and lower extremity against gravity without difficulty. Sensation Decrease at gloves and stock for light touch and temperature. COORDINATION: Jrhyod-fe-pdiz test intact. HEART: Regular rate and rhythm. LUNGS: Equal breath sounds. ABDOMEN: Soft, relaxed, nondistended, no tenderness. ASSESSMENT AND PLAN: 1. The patient is 63 years old with decreased visual field on the right side. The patient needs to have a visual field photograph and seen by bulb tester. 2. Possibility of underlying temporal arteritis. Biopsy is still pending. I will continue the patient on IV steroid and do followup the patient with tapering doses thereafter and see how the patient responds for that. 3. Underlying diabetes type 2. Follow up the patient with Accu-Chek and sliding scale insulin. 4. Hypertension. Keep the blood pressure at the level of 140/90. 5. Stroke prophylaxis in which the patient is on Plavix 75 mg once a day. 6. History of aneurysm. Follow up the patient with CT scan of her head because we cannot do MRI. 7. Underlying hypothyroidism. Follow up the patient with thyroid function. The patient is on levothyroxine. 8. Underlying depression, in which the patient takes sertraline. 9. Dyslipidemia. Follow up the patient with lipid panel and maximize her statin. Follow up the patient with the recommendation after temporal artery biopsy as well as ophthalmology consult or neurophthalmology if available. Dictated By: ARJUN CHIRINOS/BAUTISTA Conf#: [id number] DID#: [id number] CC: FERNANDA GUERIN MD;*EndCC* MTDD
[2018-12-09] MEDS ORDERED: PROPOFOL 200 MG INJ ONE (07:00)
[2018-12-09] MEDS ORDERED: METOCLOPRAMIDE 10 MG INJ ONE (07:00)
[2018-12-09] MEDS: PANTOPRAZOLE (EC) 40 MG TAB PO SCH (07:00)
[2018-12-09] MEDS ORDERED: CEFAZOLIN 1 GM INJ ONE (07:00)
[2018-12-09] MEDS ORDERED: LIDOCAINE 2% (SDV) 5 ML INJ ONE (07:00)
[2018-12-09] MEDS ORDERED: SEVOFLURANE 15 MIN ONE (07:00)
[2018-12-09] MEDS: ACCU-CHEK XX SCH ×4 (07:00→23:27)
[2018-12-09] MEDS: metFORMIN 500 MG TAB PO SCH (08:23)
[2018-12-09] MEDS: SERTRALINE 50 MG TAB PO SCH (08:23)
[2018-12-09] MEDS: DIVALPROEX (EC) 500 MG TAB PO SCH ×2 (08:25→23:24)
[2018-12-09] MEDS: GABAPENTIN 300 MG CAP PO SCH ×3 (08:25→23:24)
[2018-12-09] MEDS: AMLODIPINE 10 MG TAB PO SCH (08:25)
[2018-12-09] MEDS: CYCLOBENZAPRINE 10 MG TAB PO SCH (08:26)
[2018-12-09] MEDS: DONEPEZIL 10 MG TAB PO SCH (08:26)
[2018-12-09] MEDS: CLOPIDOGREL 75 MG TAB PO SCH (08:27)
[2018-12-09] MEDS: DOCUSATE SODIUM 100 MG CAP PO SCH ×2 (08:27→23:24)
[2018-12-09] MEDS: NICOTINE (21 MG/24 HR) PATCH TRANSDERM SCH (08:27)
[2018-12-09] MEDS: LOSARTAN 50 MG TAB PO SCH (08:31)
[2018-12-09] MEDS: METHYLPRED. NA SUCC 1,000 MG in DEXTROSE 5% 100 ML IVPB SCH (08:41)
[2018-12-09] MEDS: morphine 2 MG INJ IV PRN (09:14)
--- NOTE | 2018-12-09 11:52 | PN ---
Date/Time of Note Date/Time of Note DATE: 12/09/18 TIME: 11:50 Subjective Patient was observed walking in the hallway. Right eyesight remains poor Objective Vitals Vital Signs Date Temp Pulse Resp B/P (MAP) Pulse Ox O2 O2 Flow FiO2 Time Delivery Rate 12/09/18 97.5 66 20 143/77 95 Nasal 11:11 (99) Cannula 12/09/18 2.0 07:46 Intake and Output 12/08/18 12/08/18 12/09/18 1515:00 23:00 07:00 IntakeIntake Total 900 ml 500 ml BalanceBalance 900 ml 500 ml Right eye with light detection only. Left eye with normal vision Neck supple Lungs are clear to auscultation Cardiac regular rate and rhythm Abdomen soft nontender Extremities no clubbing cyanosis or edema Neurological otherwise nonfocal Results Result Diagram: 12/08/18 0534 12/08/18 0534 Medications Medications Current Medications Albuterol (Ventolin Hfa) 2 puff Q4 INH Last administered on 12/09/18 08:23; Admin Dose 2 PUFF; Start 12/07/18 at 23:30 Alprazolam (Xanax) 1 mg Q12H PRN PO ANXIETY Last administered on 12/08/18 20:38; Admin Dose 1 MG; Start 12/07/18 at 22:00 Amlodipine Besylate (Norvasc) 10 mg DAILY PO Last administered on 12/09/18 08:25; Admin Dose 10 MG; Start 12/08/18 at 09:00 Atorvastatin Calcium (Lipitor) 80 mg QHS PO Last administered on 12/08/18 20:38; Admin Dose 80 MG; Start 12/07/18 at 22:30 Clopidogrel Bisulfate (plaVIX) 75 mg DAILY PO Last administered on 12/08/18 08:25; Admin Dose 75 MG; Start 12/08/18 at 09:00 Cyclobenzaprine HCl (Flexeril) 10 mg DAILY PO Last administered on 12/09/18 08:26; Admin Dose 10 MG; Start 12/08/18 at 09:00 Divalproex Sodium (Depakote) 500 mg BID PO Last administered on 12/09/18 08:25; Admin Dose 500 MG; Start 12/07/18 at 22:30 Docusate Sodium (Colace) 100 mg BID PO Last administered on 12/08/18 20:37; Admin Dose 100 MG; Start 12/08/18 at 09:00 Donepezil HCl (Aricept) 10 mg DAILY PO Last administered on 12/09/18 08:26; Admin Dose 10 MG; Start 12/08/18 at 09:00 Gabapentin (Neurontin) 300 mg TID PO Last administered on 12/09/18 08:25; Admin Dose 300 MG; Start 12/07/18 at 22:30 Losartan Potassium (Cozaar) 50 mg DAILY PO Last administered on 12/08/18 08:25; Admin Dose 50 MG; Start 12/08/18 at 09:00 Metformin HCl (Glucophage) 500 mg WITH BREAKFAST PO Last administered on 12/09/18 08:23; Admin Dose 500 MG; Start 12/08/18 at 08:00 Nicotine (Nicoderm 21 Mg/ 24hr) 1 patch DAILY TRANSDERM ; Start 12/08/18 at 09:00 Prochlorperazine (Compazine) 10 mg Q8H PRN PO NAUSEA; Start 12/07/18 at 22:00 Sertraline HCl (Zoloft) 150 mg DAILY PO Last administered on 12/09/18 08:23; Admin Dose 150 MG; Start 12/08/18 at 09:00 Zolpidem Tartrate (Ambien) 5 mg QHS PRN PO INSOMNIA; Start 12/07/18 at 22:00 Diagnostic Test (Pha) (Accu-Chek) 1 ea AC MEALS AND BEDTIME XX ; Start 12/08/18 at 07:00 Morphine Sulfate (morphine) 2 mg Q3 PRN IV SEVERE PAIN LEVEL 7-10 Last administered on 12/09/18 09:14; Admin Dose 2 MG; Start 12/07/18 at 22:30 Acetaminophen/ Hydrocodone Bitart (Grant (5/325)) 1 tab Q6H PRN PO MODERATE PAIN LEVEL 4-6 Last administered on 12/08/18 10:44; Admin Dose 1 TAB; Start 12/07/18 at 22:30 Trazodone HCl (Desyrel) 100 mg QHS PO Last administered on 12/08/18 20:38; Admin Dose 100 MG; Start 12/08/18 at 00:00 Pantoprazole (Protonix Tab) 40 mg AC BREAKFAST PO Last administered on 12/08/18at 07:56; Admin Dose 40 MG; Start 12/08/18 at 06:00 Methylprednisolone Sodium Succinate 1000 mg/Dextrose 100 ml @ 100 mls/hr DAILY IVPB Last administered on 12/09/18at 08:41; Admin Dose 100 MLS/HR; Start 12/08/18 at 13:00; Stop 12/10/18 at 12:59 Hydroxyzine HCl (Atarax) 50 mg BID PRN PO ITCHING; Start 12/08/18 at 17:30 VTE Prophylaxis Risk score (from Ns)>0 risk: 4 SCD applied (from [facility] [place]): Yes Lines/Catheters IV Catheter Type: Saline Lock Jose in Place: No Assessment/Plan Assessment/Plan 63-year-old female with right visual loss times 3 weeks Rule out temporal arteritis. Normal ESR makes it less likely Type 2 diabetes mellitus History of brain aneurysm, status post craniotomy and repair of aneurysm Continue IV Solu-Medrol Proceed with temporal artery biopsy Neurology and vascular follow-up FERNANDA GUERIN MD Dec 09, 2018 11:52
--- NOTE | 2018-12-09 19:53 | PREAC ---
Date/Time of Note Date/Time of Note DATE: 12/09/18 TIME: 19:49 Anesthesia Eval and Record Evaluation Time Pre-Procedure Interview DATE: 12/09/18 TIME: 19:49 Age 63 Sex female NPO: 8 hrs Preoperative diagnosis temporal arteritis Planned procedure temporal artery biopsy Past Medical History Past Medical History: Includes Cardio: HTN, Dyslipidemia, Arrythmia Endo: Diabetes, Hypothyroid Pulm: Smoking Hx, COPD, Sleep Apnea Neuro: CVA, Peripheral neuropathy, Other (vascular dementia) GI: GERD, Morbid obesity Heme: Coagulation disorder Psych: Depression, Anxiety Surgery & Anesthesia Issues No known issue Meds Anticoagulation: No Beta Gracie within 24 hr: No Reason Beta Gracie not given: Pt. not on B-Gracie Active Scripts Prednisone* (Prednisone*) 50 Mg Tablet, 50 MG PO DAILY for 10 Days, TAB Prov:FERNANDA GUERIN MD 12/08/18 Reported Medications Donepezil* (Donepezil*) 10 Mg Tablet, 10 MG PO DAILY, #30 TAB 12/07/18 Zolpidem Tartrate* (Zolpidem Tartrate*) 5 Mg Tablet, 5 MG PO QHS PRN for INSOMNIA, #30 TAB 12/07/18 Tramadol Hcl* (Ultram*) 50 Mg Tablet, 50 MG PO Q6H PRN for PAIN, TAB 12/07/18 Nicotine* (Nicotine* Patch) 21 mg/day Patch, 1 EACH TD DAILY, PATCH 12/07/18 Atorvastatin* (Atorvastatin*) 80 Mg Tablet, 80 MG PO QHS, #30 TAB 12/07/18 Clopidogrel Bisulfate* (Clopidogrel Bisulfate*) 75 Mg Tablet, 75 MG PO DAILY, #30 TAB 12/07/18 Divalproex Sodium* (Divalproex Sodium*) 500 Mg Tablet.dr, 500 MG PO BID, #120 TAB 12/07/18 Trazodone Hcl* (Trazodone Hcl*) 100 Mg Tablet, 100 MG PO QHS, #30 TAB 12/07/18 Ergocalciferol (Vitamin D2) (VITAMIN D2) 50,000 Unit Capsule, 41431 UNIT PO Q7D, CAP 12/07/18 Gabapentin* (Gabapentin*) 300 Mg Capsule, 300 MG PO TID, #90 CAP 12/07/18 Albuterol Sulfate* (Ventolin HFA*) 18 Gm Hfa.aer.ad, 2 PUFF INHALATION Q4H, #1 INHALER 12/07/18 Ferrous Sulfate* (Ferrous Sulfate*) 325 Mg Tabec, 325 MG PO DAILY, TAB 12/07/18 Amlodipine Besylate* (Amlodipine Besylate*) 10 Mg Tablet, 10 MG PO DAILY, #30 TAB 12/07/18 Ipratropium-Albuterol (Ipratropium-Albuterol) 0.5-3 Mg/3 Ml Ampul.neb, 3 ML INHALATION BID, #30 VIAL 12/07/18 Alprazolam* (Alprazolam*) 1 Mg Tablet, 1 MG PO Q12H PRN for ANXIETY, TAB 12/07/18 Pantoprazole* (Pantoprazole*) 40 Mg Tablet.dr, 40 MG PO AC BREAKFAST, TAB 12/07/18 Docusate Sodium* (Docusate Sodium*) 100 Mg Capsule, 100 MG PO BID, #60 CAP 12/07/18 Hydroxyzine Hcl* (Hydroxyzine Hcl*) 50 Mg Tablet, 50 MG PO BID PRN for ITCHING, #30 TAB 12/07/18 Umeclidinium Brm-Vilanterol Tr (Anoro Ellipta) 62.5-25 Mcg Disk.w.dev, 1 EACH INHALATION DAILY, #1 DISK 12/07/18 Prochlorperazine* (Prochlorperazine*) 10 Mg Tablet, 10 MG PO Q8H PRN for NAUSEA, TAB 12/07/18 Sertraline Hcl* (Sertraline Hcl*) 50 Mg Tablet, 50 MG PO TID, #30 TAB 12/07/18 Losartan Potassium* (Losartan Potassium*) 50 Mg Tablet, 50 MG PO DAILY, TAB 12/07/18 Metformin Hcl* (Metformin Hcl*) 500 Mg Tablet, 500 MG PO WITH BREAKFAST, #30 TAB 12/07/18 Cyclobenzaprine Hcl* (Cyclobenzaprine Hcl*) 10 Mg Tablet, 10 MG PO DAILY, #60 TAB 12/07/18 Discontinued Reported Medications Donepezil* (Donepezil*) 10 Mg Tablet, 10 MG PO DAILY, #30 TAB 12/07/18 Levothyroxine Sodium* (Levothyroxine Sodium*) 25 Mcg Tablet, 25 MCG PO BEFORE BREAKFAST, #30 TAB 12/07/18 Docusate Sodium* (Docusate Sodium*) 100 Mg Capsule, 100 MG PO DAILY PRN for CONSTIPATION, CAP 07/18/14 Pantoprazole* (Protonix*) 40 Mg Tablet.dr, 40 MG PO DAILY, TAB 07/18/14 Atorvastatin Calcium* (Atorvastatin Calcium*) 20 Mg Tablet, 20 MG PO HS, TAB 07/18/14 Aspirin* (Aspirin* EC) 325 Mg Tablet.dr, 325 MG PO DAILY, TAB 07/18/14 Nicotine* (Nicoderm* Patch) 21 mg/day Patch, 1 PATCH TD DAILY, PATCH 07/18/14 Meclizine Hcl* (Antivert*) 25 Mg Tablet, 25 MG PO TID, TAB 07/18/14 Gabapentin* (Neurontin*) 300 Mg Capsule, 300 MG PO TID, CAP 07/18/14 Sertraline Hcl* (Zoloft*) 100 Mg Tablet, 100 MG PO DAILY, TAB 07/03/14 Alprazolam* (Xanax*) 1 Mg Tab, 1 MG PO BID PRN for ANXIETY, TAB 01/25/14 Spironolactone* (Aldactone*) 50 Mg Tablet, 50 MG PO DAILY 01/25/14 Losartan Potassium* (Cozaar*) 50 Mg Tablet, 50 MG PO BID, TAB 01/25/14 Current Medications Albuterol (Ventolin Hfa) 2 puff Q4 INH Last administered on 12/09/18at 16:31; Admin Dose 2 PUFF; Start 12/07/18 at 23:30 Alprazolam (Xanax) 1 mg Q12H PRN PO ANXIETY Last administered on 12/08/18 20:38; Admin Dose 1 MG; Start 12/07/18 at 22:00 Amlodipine Besylate (Norvasc) 10 mg DAILY PO Last administered on 12/09/18 08:25; Admin Dose 10 MG; Start 12/08/18 at 09:00 Atorvastatin Calcium (Lipitor) 80 mg QHS PO Last administered on 12/08/18 20:38; Admin Dose 80 MG; Start 12/07/18 at 22:30 Clopidogrel Bisulfate (plaVIX) 75 mg DAILY PO Last administered on 12/08/18 08:25; Admin Dose 75 MG; Start 12/08/18 at 09:00 Cyclobenzaprine HCl (Flexeril) 10 mg DAILY PO Last administered on 12/09/18 08:26; Admin Dose 10 MG; Start 12/08/18 at 09:00 Divalproex Sodium (Depakote) 500 mg BID PO Last administered on 12/09/18 08:25; Admin Dose 500 MG; Start 12/07/18 at 22:30 Docusate Sodium (Colace) 100 mg BID PO Last administered on 12/08/18 20:37; Admin Dose 100 MG; Start 12/08/18 at 09:00 Donepezil HCl (Aricept) 10 mg DAILY PO Last administered on 12/09/18 08:26; Admin Dose 10 MG; Start 12/08/18 at 09:00 Gabapentin (Neurontin) 300 mg TID PO Last administered on 12/09/18 08:25; Admin Dose 300 MG; Start 12/07/18 at 22:30 Losartan Potassium (Cozaar) 50 mg DAILY PO Last administered on 12/08/18 08:25; Admin Dose 50 MG; Start 12/08/18 at 09:00 Metformin HCl (Glucophage) 500 mg WITH BREAKFAST PO Last administered on 12/09/18 08:23; Admin Dose 500 MG; Start 12/08/18 at 08:00 Nicotine (Nicoderm 21 Mg/ 24hr) 1 patch DAILY TRANSDERM ; Start 12/08/18 at 09:00 Prochlorperazine (Compazine) 10 mg Q8H PRN PO NAUSEA; Start 12/07/18 at 22:00 Sertraline HCl (Zoloft) 150 mg DAILY PO Last administered on 12/09/18 08:23; Admin Dose 150 MG; Start 12/08/18 at 09:00 Zolpidem Tartrate (Ambien) 5 mg QHS PRN PO INSOMNIA; Start 12/07/18 at 22:00 Diagnostic Test (Pha) (Accu-Chek) 1 ea AC MEALS AND BEDTIME XX ; Start 12/08/18 at 07:00 Morphine Sulfate (morphine) 2 mg Q3 PRN IV SEVERE PAIN LEVEL 7-10 Last administered on 12/09/18 09:14; Admin Dose 2 MG; Start 12/07/18 at 22:30 Acetaminophen/ Hydrocodone Bitart ([place] (5/325)) 1 tab Q6H PRN PO MODERATE PAIN LEVEL 4-6 Last administered on 12/08/18at 10:44; Admin Dose 1 TAB; Start 12/07/18 at 22:30 Trazodone HCl (Desyrel) 100 mg QHS PO Last administered on 12/08/18at 20:38; Admin Dose 100 MG; Start 12/08/18 at 00:00 Pantoprazole (Protonix Tab) 40 mg AC BREAKFAST PO Last administered on 12/08/18at 07:56; Admin Dose 40 MG; Start 12/08/18 at 06:00 Methylprednisolone Sodium Succinate 1000 mg/Dextrose 100 ml @ 100 mls/hr DAILY IVPB Last administered on 12/09/18at 08:41; Admin Dose 100 MLS/HR; Start 12/08/18 at 13:00; Stop 12/10/18 at 12:59 Hydroxyzine HCl (Atarax) 50 mg BID PRN PO ITCHING; Start 12/08/18 at 17:30 Meds reviewed: Yes Allergies Coded Allergies: ibuprofen (Verified Allergy, Unknown, 12/07/18) iodine (Verified Allergy, Unknown, 12/07/18) sumatriptan (Verified Allergy, Unknown, 12/07/18) tramadol (Unverified Allergy, Unknown, 12/07/18) Allergies Reviewed: Yes Labs/Studies Labs Reviewed: Reviewed by anesthesiologist Result Diagram: 12/08/18 0534 12/08/1834 test: Negative Studies: ECG, CXR, 2D Echo Pre-procedure Exam Last vitals Vital Signs Date Temp Pulse Resp B/P (MAP) Pulse Ox O2 O2 Flow FiO2 Time Delivery Rate 12/09/18 69 16:26 12/09/18 97.9 20 140/85 97 Nasal 15:12 (103) Cannula 12/09/18 2.0 07:46 Airway: Adequate mouth opening, Adequate thyromental dist Mallampati: Mallampati III Teeth: Normal Lung: Normal Heart: Normal ASA Physical Status ASA physical status: 3 Emergency: E Planned Anesthetic General/MAC: LMA Planned Pain Management Parenteral pain med, Local by surgeon Pre-operative Attestations Prior to commencing anesthesia and surgery, the patient was re-evaluated, there was verification of: *The patient's identity *The results of appropriate recent lab work and preoperative vital signs *The above evaluation not changing prior to induction *Anesthetic plan, risk benefits, alternative and complications discussed with patient/family; questions answered; patient/family understands, accepts and wishes to proceed. SANJAY MERIDA MD Dec 09, 2018 19:53
[2018-12-09] MEDS ORDERED: FENTAnyl 50 MCG/ML VIAL ONE (19:58)
[2018-12-09] MEDS ORDERED: ONDANSETRON 4 MG INJ ONE (19:59)
[2018-12-09] MEDS ORDERED: MIDAZOLAM 1 MG/ML 2 ML INJ ONE (19:59)
[2018-12-09] MEDS ORDERED: FENTAnyl 50 MCG/ML VIAL IV PRN (20:00)
[2018-12-09] MEDS ORDERED: LABETALOL HCL 20MG INJ IV PRN (20:00)
[2018-12-09] MEDS ORDERED: HYDROmorphONE 1 MG/5 ML IV SYRINGE IV PRN ×2 (20:00)
[2018-12-09] MEDS ORDERED: MIDAZOLAM 1 MG/ML 2 ML INJ IV PRN (20:00)
[2018-12-09] MEDS ORDERED: LORAZEPAM 2 MG INJ IV PRN (20:00)
[2018-12-09] MEDS ORDERED: hydrALAzine 20 MG INJ IV PRN (20:00)
[2018-12-09] MEDS ORDERED: MEPERIDINE 25 MG INJ IV PRN (20:00)
[2018-12-09] MEDS ORDERED: HALOPERIDOL 5 MG INJ IV PRN (20:00)
[2018-12-09] MEDS ORDERED: ONDANSETRON 4 MG INJ IV PRN (20:00)
[2018-12-09] MEDS ORDERED: IPRATROPIUM (NEB) 0.5 MG/2.5 ML AMP HHN PRN (20:00)
[2018-12-09] MEDS ORDERED: DIPHENHYDRAMINE 50 MG INJ IV PRN (20:00)
[2018-12-09] MEDS ORDERED: LEVALBUTEROL (NEB) 1.25 MG/0.5 ML AMP HHN PRN (20:00)
[2018-12-09] MEDS ORDERED: LIDOCAINE 1%/EPI (1:100,000) (MDV) 20 ML ONE (21:28)
--- NOTE | 2018-12-09 22:13 | PAC ---
Date/Time of Note Date/Time of Note DATE: 12/09/18 TIME: 22:13 Post-Anesthesia Notes Post-Anesthesia Note Last documented vital signs Vital Signs Date Temp Pulse Resp B/P (MAP) Pulse Ox O2 O2 Flow FiO2 Time Delivery Rate 12/09/18 98.0 22:06 12/09/18 69 16:26 12/09/18 20 140/85 97 Nasal 15:12 (103) Cannula 12/09/18 2.0 07:46 Activity: WNL Respiratory function: WNL Cardiovascular function: WNL Mental status: Baseline Pain reasonably controlled: Yes Hydration appropriate: Yes Nausea/Vomiting absent: Yes SANJAY MERIDA MD Dec 09, 2018 22:13
[2018-12-09] MEDS ORDERED: RACEPINEPHRINE 2.25%(NEB) 0.5 ML AMP ONE (22:16)
[2018-12-09] MEDS: ATORVASTATIN 80 MG TAB PO SCH (23:24)
[2018-12-09] MEDS: traZODone 100 MG TAB PO SCH (23:24)
[2018-12-09] MEDS: ALPRAZOLAM 1 MG TAB PO PRN (23:30)
[2018-12-10] VITALS (8 sets, daily range): BP systolic 105–147; BP diastolic 59–87; PULSE 65–86; RESP 17–20
[2018-12-10] MEDS: ALBUTEROL HFA 8 GM INHALER INH SCH ×4 (01:00→13:00)
--- NOTE | 2018-12-10 04:14 | CONS ---
DATE OF ADMISSION: 12/08/2018 DATE OF CONSULTATION: 12/09/2018 HISTORY OF PRESENT ILLNESS: The patient is a 63-year-old lady with a past medical history of vascula r dementia, diabetes type 2, hyperlipidemia, anxiety disorder, diabetic neuropathy, hypertension, pos sible temporal arteritis diagnosed at [facility] previously in which the patient was admitted ag [facility] with a decreased in her visual field in the right eye in which I recommend ed for her to be seen by junior sales assistant with fundus photographs and visual field graft to evaluate h er vision, which is not likely secondary to temporal arteritis because her sedimentation rate is with in normal limits. The patient is to follow up with the eyeglass maker. CURRENT MEDICATIONS: Include: 1. Aricept. 2. Ambien. 3. Tramadol. 4. Nicotine patch. 5. Plavix. 6. Lipitor. 7. Trazodone. 8. Vitamin D. 9. Gabapentin. 10. Albuterol. 11. Ferrous sulfate. 12. Norvasc. 13. Xanax. 14. Protonix. 15. Hydroxyzine. 17. Levothyroxine. 18. Sertraline. 19. Losartan. 20. Metformin. 21. Cyclobenzaprine. 22. Solu-Medrol. PAST MEDICAL HISTORY: In the form of craniotomy for intracranial injuries in 2003. PHYSICAL EXAMINATION: GENERAL: Today, the patient is alert, awake, following simple commands. CRANIAL NERVES: Cranial nerve II: Right eye with hand movement. Left eye with finger counting inta ct. Cranial nerve III, IV, and : Extraocular muscles intact. Cranial nerve V: Equal sensation to face. Cranial nerve VII: Symmetrical face. Cranial nerve VIII: Equal hearing bilaterally. Crani al nerve IX and X: Elevated palate. Cranial nerve XI: Elevates shoulder 5/5. Cranial nerve XII: With straight tongue. MOTOR: Moving both upper and lower extremities against gravity without difficulty. Sensation: Decr eased for glove and sock area for light touch and temperature. COORDINATION: Yntjmn-hd-heux test intact. CARDIOVASCULAR: Regular rate and rhythm. LUNGS: Equal breath sounds. ABDOMEN: Soft, relaxed, nondistended, no tenderness. ASSESSMENT AND PLAN: 1. The patient is 63 years old with decreased right eye visual field. The patient needs an ophthalm ologist to evaluate with fundus photographs and visual field graft, possibility of underlying tempora l arteritis less likely with normal ESR in which the patient to have more confirmation or might need a biopsy of her temporal artery. 2. Underlying diabetes. Follow up the patient Accu-Cheks sliding scale ____. 3. Hypertension. Keep the blood pressure at the level of 140/90. 4. Stroke prophylaxis. Keep the patient on Plavix 75 mg once a day. 5. History of aneurysm. CT of the brain showed no intracranial hemorrhage, right inferior frontotem poral craniotomy with aneurysm clip in the [place]. 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 6. History of hypertension. Keep the blood pressure at the level of 140/90 or less with the patient in Norvasc. 7. History of dyslipidemia. Continue the patient on Lipitor. 8. History of depression in which the patient takes sertraline. 9. History of memory disorder in which the patient is taking Aricept. 10. History of insomnia. Keep the patient on Ambien. Again, thank you for asking me to see the patient with you. Dictated By: ARJUN CHIRINOS/BAUTISTA Conf#: [id number] DID#: [id number]
[2018-12-10] MEDS: ACCU-CHEK XX SCH ×2 (07:00→12:27)
[2018-12-10] MEDS: NICOTINE (21 MG/24 HR) PATCH TRANSDERM SCH (08:12)
[2018-12-10] MEDS: DOCUSATE SODIUM 100 MG CAP PO SCH (08:12)
[2018-12-10] MEDS: AMLODIPINE 10 MG TAB PO SCH (08:13)
[2018-12-10] MEDS: CYCLOBENZAPRINE 10 MG TAB PO SCH (08:13)
[2018-12-10] MEDS: metFORMIN 500 MG TAB PO SCH (08:13)
[2018-12-10] MEDS: DONEPEZIL 10 MG TAB PO SCH (08:13)
[2018-12-10] MEDS: GABAPENTIN 300 MG CAP PO SCH ×2 (08:13→13:13)
[2018-12-10] MEDS: LOSARTAN 50 MG TAB PO SCH (08:13)
[2018-12-10] MEDS: CLOPIDOGREL 75 MG TAB PO SCH (08:14)
[2018-12-10] MEDS: SERTRALINE 50 MG TAB PO SCH (08:14)
[2018-12-10] MEDS: DIVALPROEX (EC) 500 MG TAB PO SCH (08:14)
[2018-12-10] MEDS: PANTOPRAZOLE (EC) 40 MG TAB PO SCH (08:14)
[2018-12-10] MEDS: morphine 2 MG INJ IV PRN (08:15)
[2018-12-10] MEDS: METHYLPRED. NA SUCC 1,000 MG in DEXTROSE 5% 100 ML IVPB SCH (09:56)
--- NOTE | 2018-12-10 11:23 | PDOCDIS ---
Discharge Instructions CONDITION [id number] Patient Condition: [id number] Good HOME CARE INSTRUCTIONS: [id number] Diet Instructions: [id number] Activity Restrictions: [id number] Do not Drive FOLLOW UP/APPOINTMENTS Follow-up Plan neurology 1 week pcp 1 week ophtomology FERNANDA CAMPBELL MD Dec 10, 2018 11:23
[2018-12-10] MEDS: HYDROCODONE/APAP (5/325) TAB PO PRN (13:09)
--- NOTE | 2018-12-11 06:04 | DS ---
DATE OF ADMISSION: 12/08/2018 DATE OF DISCHARGE: 12/10/2018 DISCHARGE DIAGNOSES: 1. A 63-year-old with right eye visual loss, resolved. 2. Rule out temporal arteritis, status post biopsy. 3. Hypertension. 4. Type 2 diabetes mellitus. 5. Vascular dementia. 6. Hyperlipidemia. 7. Anxiety disorder. 8. Diabetic neuropathy. PROCEDURES DURING HOSPITALIZATION: Temporal artery biopsy. HOSPITAL COURSE: A 63-year-old [place]- female with multiple other problems, presented to em ergency room with complaint of right-sided headache and loss of vision in the right eye for about 3 w eeks. The patient was diagnosed with presumed temporal arteritis. She was seen in consultation by n eurology. I discussed the case with Dr. Handy and he recommended high dose Solu-Medrol for 3 days. The patient was also seen by Dr. Cho and underwent temporal artery biopsy. Her sedimentation rate was normal at 12. However, her lesion was back to normal after high dose Solu-Medrol. The adrian ent is in a stable condition for discharge. She needs followup with neurology as well as ophthalmolo gy for a complete eye exam. These would be arranged as outpatient. Dictated By: FERNANDA RUIZ/NTS Conf#: [id number] DID#: [id number] CC: ARJUN GOTTLIEB MD;*EndCC*
--- NOTE | 2018-12-11 09:51 | HKNOTE ---
DATE OF SERVICE: 12/10/2018 HISTORY OF PRESENT ILLNESS: The patient is 63 years old status post decreased right visual field in which the patient seen by check and transfer beader admitted to emergency room. The patient has multiple medic al problems in the form of diabetes, vascular dementia, hyperlipidemia, diabetic neuropathy, hyperten li in which the patient has a diagnosis of temporal arteritis at [facility] with no tissue bio psy and her sedimentation rate was normal in which the patient had a biopsy by Dr. Cho and we a re waiting for the result. However, the patient mentioned her eye improved in which Dr. Nelson called me and we agreed to discharge the patient, follow up with check and transfer beader and follow up in the clinic . PHYSICAL EXAMINATION: GENERAL: The patient is alert, awake, oriented, following simple commands. CRANIAL NERVES: Cranial nerve II: Pupils equal on both sides, reactive to light. Cranial nerves II I, IV and : Extraocular muscles intact. Cranial nerve V: Equal sensation to face. Cranial nerve VII: Symmetrical face. Cranial nerve VIII: Equal hearing bilaterally. Cranial nerve IX and X: E levates shoulder 5/5 with elevate. Cranial nerve XII: With straight tongue. MOTOR: Moving both upper and lower extremities against gravity. Sensation decreased for glove and s tock for light touch and temperature. COORDINATION: Fxcukl-jb-salk test intact. HEART: Regular rate and rhythm. LUNGS: Equal breath sounds. ABDOMEN: Soft, relaxed, nondistended. No tenderness. ASSESSMENT AND PLAN: 1. The patient is 63 years old status post decreased vision in the right eye. The patient needs to follow up with check and transfer beader for more evaluation and treatment. 2. History of possible temporal arteritis. We are waiting for the result of the pathology; however, the sedimentation rate is within normal limits. 3. Underlying diabetes. Continue the patient's Accu-Chek and sliding scale insulin. 4. Hypertension. Keep the blood pressure at the level of 140/90. 5. Stroke prophylaxis. Keep the patient on Plavix 75 mg once a day. 6. History of aneurysm. No intracranial hemorrhage, history of right temporal craniotomy with clipp ing of aneurysm. 7. History of hypertension. 8. History of dyslipidemia. Keep the patient on Lipitor once a day. 9. History of depression with the patient on Prozac. 10. History of memory disorder with the patient on Aricept. 11. History of insomnia with the patient on Ambien 5 mg once a day. Dictated By: ARJUN GOTTLIEB MD NA/NTS Conf#: [id number] DID#: [id number] CC: FERNANDA GUERIN MD;*EndCC*
--- NOTE | 2018-12-16 16:59 | OPR ---
DATE OF OPERATION: 12/09/2018 PREOPERATIVE DIAGNOSIS: Rule out temporal arteritis. POSTOPERATIVE DIAGNOSIS: Rule out temporal arteritis. PROCEDURES: 1. Right temporal artery biopsy. 2. Left temporal artery biopsy. ANESTHESIA: Local plus IV sedation. SURGEON: Robert Cho MD ESTIMATED BLOOD LOSS: 2 mL. INDICATIONS: Risks, benefits, complications, alternative therapies were explained to the patient and consent was obtained. This is a patient with severe headache that was being worked up for possible temporal arteritis. DESCRIPTION OF PROCEDURE: The patient was prepped and draped in usual sterile fashion. Alcohol was not used. Betadine was used. Precautions were made to avoid any fires. I made a 2 cm vertical fash ion just anterior to the ear on the right side. Incision was taken down to subcutaneous tissue which was then opened using Metzenbaum scissors. A 2 cm portion of the right temporal artery was biopsied , ligated and removed using titanium clips. The wound was irrigated using antibiotic solution and cl osed in 2 layers of 2-0 Vicryl suture for the deep and 4-0 Monocryl suture for running subcuticular s kin closure. The same operation was exactly done on the left side. Left temporal artery was also bi opsied. The patient tolerated the procedure well. Dictated By: ROBERT CHO MD FM/NTS Conf#: [id number] DID#: [id number] CC: FERNANDA GUERIN MD;*EndCC*
== END 2018-12-10 15:50 | disposition home or self-care (01) | DRG 517 ==
LOC: E/R 14:17 → 6WM 18:48 → OBSVTOIN 12-08 16:29
PROVIDERS: ADMIT Internal Medicine; ATTEND Internal Medicine
PROC: 03BS0ZX Excision of Right Temporal Artery, Open Approach, Diagnostic (ICD-10-PCS; 2018-12-09)
PROC: 03BT0ZX Excision of Left Temporal Artery, Open Approach, Diagnostic (ICD-10-PCS; principal; 2018-12-09 19:00)
DX: M31.6 Other giant cell arteritis (principal); Z72.0 Tobacco use; I10 Essential (primary) hypertension; E78.5 Hyperlipidemia, unspecified; E11.40 Type 2 diabetes mellitus with diabetic neuropathy, unspecified; H54.61 Unqualified visual loss, right eye, normal vision left eye; E03.9 Hypothyroidism, unspecified; F01.50 Vascular dementia, unspecified severity, without behavioral disturbance, psychotic disturbance, mood disturbance, and anxiety; F32.9 Major depressive disorder, single episode, unspecified; E66.01 Morbid (severe) obesity due to excess calories; Z68.39 Body mass index [BMI] 39.0-39.9, adult
CPT/HCPCS: 36415; 70450; 80048; 82962; 84443; 84484; 85025; 85651; 88305; 88313; 92610; 93005; 93306; 93880; 97116; 97162; 97530; G0378; J0690; J2250; J2270; J2405; J2765; J2930; J3010